=== PATIENT | female | born 1960 | race Caucasian/White ===

== ENCOUNTER → 2017-02-07 | Day surgery (SDC) | payer MEDICARE, MEDICAID ==
[~2017-02-07] VITALS: Ht 167.6 cm; Wt 88.0 kg
[~2017-02-07] MED LIST: ALDACTONE25 MG PO; B COMPLEX # 11 EACH PO; BIOTIN1000 MCG PO; CLEOCIN150 MG PO; ENULOSE UD L30 ML/EA PO; K-TAB ER20 MEQ PO; LASIX40 MG PO; MAG-OX-400(241400 MG PO; MILK THISTLE175 M1 PO; PROAMATINE5 MG PO; PROTONIX40 MG PO; REQUIP0.5 MG PO; VITAMIN A8000 UNIT PO
== END | disposition disaster alternative care site (69) ==
LOC: GPOC 02-02 13:00 → GEND 08:20 → GPOC 08:30
PROC: 06L34CZ Occlusion of Esophageal Vein with Extraluminal Device, Percutaneous Endoscopic Approach (ICD-10-PCS; principal; 2017-02-07)
DX: K74.60 Unspecified cirrhosis of liver (principal); I85.10 Secondary esophageal varices without bleeding; I25.2 Old myocardial infarction; D64.9 Anemia, unspecified; G89.29 Other chronic pain; M54.2 Cervicalgia; F17.200 Nicotine dependence, unspecified, uncomplicated; Z98.890 Other specified postprocedural states; Z90.49 Acquired absence of other specified parts of digestive tract; Z79.899 Other long term (current) drug therapy
CPT/HCPCS: J2001; J7030

== ENCOUNTER → 2017-03-07 | Day surgery (SDC) | payer MEDICARE, MEDICAID ==
[~2017-03-07] VITALS: Ht 168.9 cm; Wt 88.5 kg
== END ==
LOC: GPOC 03-03 10:00 → GEND 08:20
PROC: 0DB68ZX Excision of Stomach, Via Natural or Artificial Opening Endoscopic, Diagnostic (ICD-10-PCS; principal; 2017-03-07)
DX: K31.7 Polyp of stomach and duodenum (principal); K29.50 Unspecified chronic gastritis without bleeding; I85.10 Secondary esophageal varices without bleeding; K25.9 Gastric ulcer, unspecified as acute or chronic, without hemorrhage or perforation; K74.60 Unspecified cirrhosis of liver; R18.8 Other ascites; B07.0 Plantar wart; Z98.890 Other specified postprocedural states; Z90.49 Acquired absence of other specified parts of digestive tract; F17.210 Nicotine dependence, cigarettes, uncomplicated; Z79.899 Other long term (current) drug therapy
CPT/HCPCS: J2001; J7030